=== PATIENT | female | born 1990 | race African-American/Black ===

== ENCOUNTER 2017-08-04 19:03 | Emergency (ER) | payer OTHER ==
[~2017-08-04] VITALS: Ht 162.6 cm; Wt 140.2 kg
--- NOTE | 2017-08-04 20:27 | ED HEADACHE COMPLAINT ---
History of Present Illness General Chief Complaint: Headache Stated Complaint: ALICEA, NUMBNESS ON RIGHT SIDE, DIZZY Source: patient, family Exam Limitations: no limitations Vital Signs & Intake/Output Vital Signs & Intake/Output Vital Signs Date Time Temp Pulse Resp B/P B/P Pulse O2 O2 Flow FiO2 Mean Ox Delivery Rate 08/04 1939 99.0 88 20 165/97 97 Room Air Allergies Coded Allergies: Sulfa (Sulfonamide Antibiotics) (Severe, SOB, SWELLING 08/04/17) Triage Note: RECEIVED 27 YO FEMALE C/O HEADACHE STARTED LAST NIGHT WITH DIZZINESS STARTED APPROX 6 PM TONITE AND NUMBNESS ALL OVER, BUT MAINLY TO RLE. ACCORDING TO FRIEND, PT FELL BACK ON STAIRS TODAY AND APPEARED ZONED OUT TODAY. Triage Nurses Notes Reviewed? yes Onset: Gradual Duration: hour(s): Timing: single episode today Quality/Severity: moderate Head Injury Location: frontal : No Patient currently breastfeeds: No HPI: 27yo female presents to ED complaining of headache and dizziness. Patient states that she developed right-sided headache beginning last night which has been persistent today. Patient also complaining of dizziness and loss of balance earlier today. Patient states that she felt dizzy and then fell onto her buttocks hitting the wall and fell down one step. Patient does not believe that she hit her head during this episode. Patient also complaining of generalized body numbness however worse in the right leg. Patient's friend reports that patient appeared "zoned out" following this episode. Patient denies loss of consciousness or blackout. (Jenny Kauffman) Past History Travel History Traveled to [place] past 21 day No Medical History Any Pertinent Medical History? see below for history Neurological: NONE EENT: NONE Cardiovascular: hypertension, hyperlipidemia Respiratory: obstructive sleep apnea Gastrointestinal: NONE Hepatic: NONE Renal: NONE Musculoskeletal: NONE Psychiatric: NONE Endocrine: diabetes Blood Disorders: NONE Cancer(s): NONE Surgical History Surgical History: non-contributory Psychosocial History What is your primary language Italian Tobacco Use: Never used Family History Hx Contributory? No (Jenny Kauffman) Review of Systems Review of Systems Constitutional: Reports: no symptoms. Eyes: Reports: no symptoms. Ears, Nose, Throat, Mouth: Reports: no symptoms. Respiratory: Reports: no symptoms. Cardiovascular: Reports: no symptoms. Gastrointestinal/Abdominal: Reports: no symptoms. Genitourinary: Reports: no symptoms. Musculoskeletal: Reports: see HPI. Skin: Reports: no symptoms. Neurological/Psychological: Reports: see HPI. Hematologic/Endocrine: Reports: no symptoms. Endocrine: Reports: no symptoms. Immunologic/Allergic: Reports: no symptoms. All Other Systems: Reviewed and Negative (Xiao CHOWDARY,Jenny García) Physical Exam Physical Exam General Appearance: well developed/nourished, no apparent distress, alert, awake , obese Head: atraumatic, normal appearance Eyes: Bilateral: normal appearance, PERRL, EOMI. Ears, Nose, Throat: normal pharynx, normal ENT inspection, hearing grossly normal Neck: normal inspection, supple, full range of motion, no midline tenderness Respiratory: normal breath sounds, no respiratory distress, lungs clear Cardiovascular: regular rate/rhythm Gastrointestinal: normal bowel sounds, soft, non-tender, no organomegaly, exam limited d/t obesity Back: normal inspection, normal range of motion, no vertebral tenderness Extremities: normal inspection, normal range of motion Psychiatric: awake, alert, oriented x 3 Cranial Nerves: normal hearing, normal speech, PERRL Coordination/Gait: normal finger to nose, normal gait Motor/Sensory: no motor/sensory deficits Skin: intact, normal color, warm/dry Core Measures Sepsis Present: No Sepsis Focused Exam Completed? No (Xiao CHOWDARY,Jenny García) Progress Differential Diagnosis: cluster ALICEA, encephalitis, IC mass/tumor, intracranial Hem., migraine ALICEA, musculoskeletal pain, subarach. Hem., tension ALICEA, TMJ syndrome, vertigo, paresthesias, CVA/TIA Plan of Care: Orders Procedure Date/time Status FingerStick- Glucose 08/04 2025 Active COMPREHENSIVE METABOLIC PANEL 08/04 2009 Complete CBC WITHOUT DIFFERENTIAL 08/04 2009 Complete EKG 08/04 194 Active URINE 08/04 193 Complete Current Medications Sig/Karen Start time Last Medication Dose Stop Time Status Admin Potassium Chloride 20 MEQ ONCE ONE 08/04 2199 UNVr (K-Dur) 08/04 2200 Laboratory Tests 08/04/172044: Urine Test NEGATIVE 08/04/172038: Anion Gap 16, Estimated GFR > 60, BUN/Creatinine Ratio 15.0, Glucose 131 H, Calcium 9.3, Total Bilirubin 0.3, AST 29, ALT 37, Alkaline Phosphatase 65, Total Protein 7.8, Albumin 4.3, Globulin 3.5, Albumin/Globulin Ratio 1.2, CBC w Diff NO MAN DIFF REQ, RBC 4.27, MCV 75.2 L, MCH 23.8 L, RDW 17.2 H, MPV 8.0, Gran % 74.3, Lymphocytes % 19.8 L, Monocytes % 3.4, Eosinophils % 2.2, Basophils % 0.3, Absolute Granulocytes 8.4 H, Absolute Lymphocytes 2.2, Absolute Monocytes 0.4, Absolute Eosinophils 0.3, Absolute Basophils 0, PUBS MCHC 31.[address] scan without acute abnormality. Patient's labs reveal very mild hypokalemia, 3.4. Patient was given potassium here in the emergency department and given information on foods with high potassium content. Patient states that her earlier symptoms have improved, no significant headache or dizziness at this time. Patient does report continued paresthesias however on neurologic exam there are no sensory deficits detected. It was recommended the patient follow up with her primary care doctor and have repeat blood work in 1 month for further assessment of her potassium. Patient was informed that if her symptoms are persistent she may require follow-up with a neurologist, she will go through her primary care doctor for a referral. The patient is in no acute distress, vital signs are stable, ambulatory and emergency Department without difficulty. The patient agrees with this plan of care. Diagnostic Imaging: Viewed by Me: CT Scan. Discussed w/RAD: CT Scan. Radiology Impression: PATIENT: SHARITA WHALEN PRESENT AGE: 27 PATIENT ACCOUNT NO: [id number] : 89 LOCATION: [facility] ORDERING PHYSICIAN: Jenny CHOWDARY SERVICE DATE: 08/04/17 EXAM TYPE: CAT - CT CERV SPINE WO IV CONTRAST; CT HEAD WO IV CONTRAST EXAMINATION: NONCONTRAST HEAD CT NONCONTRAST CERVICAL SPINE CT INDICATION INFORMATION: Fall yesterday. Headache and numbness today. COMPARISON: None TECHNIQUE: Separate noncontrast CT examinations of the head and cervical spine were performed. Coronal and sagittal images were created for each examination at the technologist workstation. DLP: 1262 mGy-cm FINDINGS: Head: There is no evidence of acute intracranial hemorrhage or territorial infarction. No abnormal mass effect or midline shift is seen. Murdock to white matter differentiation is well preserved. No extra-axial fluid collections are identified. No hydrocephalus. No significant volume loss. There is no abnormal attenuation within the brain parenchyma. The osseous structures and soft tissues are normal. The mastoid air cells and visualized portions of the paranasal sinuses are well aerated. Cervical spine: Straightening of the normal cervical lordosis. There is otherwise anatomic alignment of the vertebral bodies and posterior elements. The atlantoaxial and atlantooccipital articulations are intact. Vertebral body heights and intervertebral disc spaces are maintained. Degenerative changes are noted at the C1-C2 interface. Anterior osteophytes at C2-C3. No evidence of acute fracture. No prevertebral soft tissue swelling. Visualized portions of the lung apices are unremarkable. The thyroid gland is unremarkable. IMPRESSION: 1. No acute intracranial findings. 2. No acute fracture or malalignment of the cervical spine. DICTATED BY: Theodore Childress MD DATE/TIME DICTATED:08/04/172118 [employer] DECORATOR:EDMOND DATE/TIME TRANSCRIBED:08/04/172118 CONFIDENTIAL, DO NOT COPY WITHOUT APPROPRIATE AUTHORIZATION. <Electronically signed in Other Vendor System> SIGNED BY: Theodore Childress MD 08/04/172129 Initial ED EKG: sinus rhythm @85bpm, nonspecific ST changes (Xiao CHOWDARY,Jenny García) Departure Departure Disposition: HOME OR SELF CARE Condition: Stable Clinical Impression Primary Impression: Fall Qualifiers: Encounter type: initial encounter Qualified Code: W19.XXXA - Unspecified fall, initial encounter Secondary Impressions: Dizziness Headache Qualifiers: Headache type: unspecified Headache chronicity pattern: acute headache Intractability: not intractable Qualified Code: R51 - Headache Hypokalemia Paresthesias Referrals: Unknown (PCP/Family) Additional Instructions: Increase your fluids and rest. Eat foods rich in potassium this week. Have your primary care doctor repeat blood work and about one month to check that your electrolytes are normal. Return to the emergency Department with any worsening symptoms or other concerns. Please note that there might be incidental findings in your evaluation that are unrelated to the current emergency department visit. Please notify your primary care doctor about this emergency department visit in order to obtain and review all of the testing performed so that these incidental findings can be monitored as needed. If you had an x-ray performed, please understand that some fractures may not be seen on the initial set of x-rays. If your symptoms persist you might need a repeat set of x-rays to check for such a fracture. If you had a laceration evaluated, please understand that foreign bodies such as glass or wood may not be visible to the naked eye or on plain x-rays. If the wound becomes red, swollen, increasingly more painful or if there is any drainage from the wound, please have it reevaluated by a physician for the possibility of a retained foreign body. If you're unable to follow up as outlined in the discharge instructions please return to the emergency department. Thank you for choosing the [facility] Emergency Department for your care. It was a pleasure to serve you today. Departure Forms: Customer Survey General Discharge Information (Xiao CHOWDARY,Jenny García) PA/STORY EDITOR Co-Sign Statement Statement: ED Attending supervision documentation- [] I saw and evaluated the patient. I have also reviewed all the pertinent lab results and diagnostic results. I agree with the findings and the plan of care as documented in the PA's/STORY EDITOR's documentation. [X] I have reviewed the ED Record and agree with the PA's/STORY EDITOR's documentation. [] Additions or exceptions (if any) to the PAs/STORY EDITOR's note and plan are summarized below: [] (Ac SANCHEZ,Boom De La Cruz)
[2017-08-04 20:52] LABS: ABSOLUTE BASOPHIL COUNT 0 /CUMM (0.0-0.2); ABSOLUTE EOSINOPHIL COUNT 0.3 /CUMM (0.0-0.7); ABSOLUTE GRANULOCYTE CT 8.4 /CUMM (1.4-6.5); ABSOLUTE LYMPH COUNT 2.2 /CUMM (1.2-3.4); ABSOLUTE MONOCYTE COUNT 0.4 /CUMM (0.10-0.60); BASOPHIL % 0.3 % (0.0-2.0); EOSINOPHIL % 2.2 % (0-5); GRANULOCYTE % 74.3 % (42.2-75.2); HEMATOCRIT 32.1 % (37-47); MEAN CORPUSCULAR HGB 23.8 PG (27.0-31.0); MEAN CORPUSCULAR HGB CONC 31.6 G/DL (33.0-37.0); MEAN CORPUSCULAR VOLUME 75.2 FL (81.0-99.0); PLATELET COUNT 391 /CUMM (130-400); RBC DISTRIBUTION WIDTH 17.2 % (11.5-14.5); RED BLOOD CELL CT 4.27 /CUMM (4.20-5.40); WHITE BLOOD CELL COUNT 11.4 /CUMM (4.8-10.8)
--- NOTE | 2017-08-04 21:30 | CT SCAN REPORT ---
EXAMINATION: NONCONTRAST HEAD CT NONCONTRAST CERVICAL SPINE CT INDICATION INFORMATION: Fall yesterday. Headache and numbness today. COMPARISON: None TECHNIQUE: Separate noncontrast CT examinations of the head and cervical spine were performed. Coronal and sagittal images were created for each examination at the technologist workstation. DLP: 1262 mGy-cm FINDINGS: Head: There is no evidence of acute intracranial hemorrhage or territorial infarction. No abnormal mass effect or midline shift is seen. Murdock to white matter differentiation is well preserved. No extra-axial fluid collections are identified. No hydrocephalus. No significant volume loss. There is no abnormal attenuation within the brain parenchyma. The osseous structures and soft tissues are normal. The mastoid air cells and visualized portions of the paranasal sinuses are well aerated. Cervical spine: Straightening of the normal cervical lordosis. There is otherwise anatomic alignment of the vertebral bodies and posterior elements. The atlantoaxial and atlantooccipital articulations are intact. Vertebral body heights and intervertebral disc spaces are maintained. Degenerative changes are noted at the C1-C2 interface. Anterior osteophytes at C2-C3. No evidence of acute fracture. No prevertebral soft tissue swelling. Visualized portions of the lung apices are unremarkable. The thyroid gland is unremarkable. IMPRESSION: 1. No acute intracranial findings. 2. No acute fracture or malalignment of the cervical spine.
[2017-08-04 22:01] VITALS: BP 144/80
== END 2017-08-04 22:02 ==
LOC: ERH 19:03
PROVIDERS: Physician Assistant
DX: R42 Dizziness and giddiness (principal); R51 Headache; E87.6 Hypokalemia; R20.2 Paresthesia of skin
CPT/HCPCS: 81025; 93005; 93010